=== PATIENT | female | born 1965 | race Caucasian/White ===

== ENCOUNTER 2018-11-14 08:45 | Emergency (ER) | payer BC ==
[2018-11-14 09:02] VITALS: BP 150/88
--- NOTE | 2018-11-14 09:12 | UC ---
Skin Complaint HPI - HPI Summary HPI Summary: 53-year-old female comes in with a chief complaint of a swollen lower lip. This happened a couple weeks ago when she was using glitter while she was decorating. She is glitter last night while decorating her daughter's wedding cake. Her daughter is getting today. She woke up with swollen right sided lower lip and also some difficulty with slurring her ses. No difficulty swallowing or difficulty breathing no shortness of breath no other rashes anywhere else. She does not take an ERNIE inhibitor. No recent change in medications. When it last happened she was treated with a prednisone taper successfully. - History of Current Complaint Chief Complaint: UCGeneralIllness Time Seen by Provider: 11/14/18 09:02 Stated Complaint: SWOLLEN LIP Hx Last Menstrual Period: 11/18/18 Pain Intensity: 0 - Allergy/Home Medications Allergies/Adverse Reactions: Allergies Allergy/AdvReac Type Severity Reaction Status Date / Time carbamazepine [From Tegretol] Allergy Intermediate Hives Verified 11/14/18 09:02 phenytoin [From Dilantin] Allergy Intermediate Hives Verified 11/14/18 09:02 Home Medications: Home Medications PHENobarbital TAB(*) 30 mg PO TID 11/14/18 [History Confirmed 11/14/18] PMH/Surg Hx/FS Hx/Imm Hx Previously Healthy: Yes Neurological History: Seizures - Surgical History Surgical History: Yes Surgery Procedure, Year, and Place: craniotomy - Family History Known Family History: Positive: Non-Contributory - Social History Alcohol Use: None Substance Use Type: None Smoking Status (MU): Never Smoked Tobacco Review of Systems All Other Systems Reviewed And Are Negative: Yes Constitutional: Positive: Negative Skin: Positive: Other - see hpi Eyes: Positive: Negative ENT: Positive: Negative Respiratory: Positive: Negative Cardiovascular: Positive: Negative Gastrointestinal: Positive: Negative Motor: Positive: Negative Neurovascular: Positive: Negative Musculoskeletal: Positive: Negative Neurological: Positive: Negative Psychological: Positive: Negative Is Patient Immunocompromised?: No Physical Exam Appearance: Well-Appearing, No Pain Distress, Well-Nourished Vital Signs: Initial Vital Signs Temp 97.6 F 11/14/18 08:57 Pulse 76 11/14/18 08:57 Resp 18 11/14/18 08:57 BP 150/88 11/14/18 08:57 Pulse Ox 97 11/14/18 08:57 Vital Signs Reviewed: Yes Eye Exam: Normal Eyes: Positive: Conjunctiva Clear ENT: Positive: Pharynx normal, Uvula midline, Other - RT LOWER LIP SWOLLEN. OROPHARYNX OPEN.. Negative: Muffled voice, Hoarse voice Neck: Positive: Supple Respiratory: Positive: Lungs clear, Normal breath sounds, No respiratory distress Cardiovascular: Positive: RRR Musculoskeletal Exam: Normal Musculoskeletal: Positive: Strength Intact, ROM Intact Neurological Exam: Normal Neurological: Positive: Alert, Muscle Tone Normal Psychological Exam: Normal Psychological: Positive: Normal Response To Family, Age Appropriate Behavior Skin: Positive: Other - RIGHT SWOLLEN LOWER LIP Course/Dx - Diagnoses Provider Diagnosis: Allergic reaction Discharge - Sign-Out/Discharge Documenting (check all that apply): Patient Departure All imaging exams completed and their final reports reviewed: No Studies - Discharge Plan Condition: Stable Disposition: HOME Prescriptions: predniSONE TAB* [Deltasone 10 MG TAB*] 0 mg PO DAILY #30 tab Patient Education Materials: General Allergic Reaction (ED) Referrals: Charlie AARON,Alvarado Yancey [Primary Care Provider] - Additional Instructions: FOLLOW UP WITH YOUR DOCTOR IF NOT COMPLETELY IMPROVED. GET RECHECKED SOONER IF YOUR CONDITION WORSENS OR ANY QUESTIONS OR CONCERNS. - Billing Disposition and Condition Condition: STABLE Disposition: Home
== END 2018-11-14 09:17 | disposition home or self-care (01) ==
LOC: UCCORT 08:45
DX: R22.0 Localized swelling, mass and lump, head (principal); T78.49XA Other allergy, initial encounter; X58.XXXA Exposure to other specified factors, initial encounter; R56.9 Unspecified convulsions; Z88.8 Allergy status to other drugs, medicaments and biological substances
CPT/HCPCS: 99202; G0463